=== PATIENT | male | born 1970 | race Caucasian/White ===

== ENCOUNTER 2019-11-16 06:58 | Outpatient (CLI) | payer BC, SELFPAY ==
[2019-11-16 07:14] LABS: Add Urine Microscopic? NO; Appearance Urine Clear (Clear); Bilirubin Urine Negative (Negative); Blood Urine Negative (Negative); Color Urine Yellow (Yellow); Glucose Urine UA Negative (Negative); Ketones Urine Negative (Negative); Leukocyte Esterase Ur Negative (Negative); Nitrate Urine Negative (Negative); Protein Urine Negative (Negative); Specific Grav Ur >= 1.030 (1.010-1.020); Urobilinogen Urine 0.2 mg/dL (0.2-1.0); pH Urine 5.5 (5.0-8.0)
[2019-11-16 07:51] LABS: Hemoglobin A1C 5.9 % (<5.7)
[2019-11-16 08:36] LABS: Alanine Aminotransferase 37 U/L (16-63); Albumin Level 3.7 g/dL (3.4-5.0); Alkaline Phosphatase 61 U/L (46-116); Anion Gap 14.2 mmol/L (7-16); Aspartate Amino Transferase 28 U/L (15-37); Bilirubin,Total 0.5 mg/dL (0.00-1.00); Calcium 8.9 mg/dL (8.5-10.1); Carbon Dioxide 29 mmol/L (21-32); Chloride 102 mmol/L (98-108); Cholesterol 169 mg/dL (0-200); Creatine Kinase 78 U/L (39-308); Estimated Glomerular Filt Rate > 60; Glucose 110 mg/dL (70-99); HDL Direct 46 mg/dL (40-60); LDL Cholesterol Calculated 77 mg/dL (<130); Potassium 4.2 mmol/L (3.5-5.1); Prostate Specific Antigen 0.4 ng/mL (< OR = 4.0); Sodium 141 mmol/L (136-145); Total Protein 7.2 g/dL (6.4-8.2); Triglycerides 230 mg/dL (0-150); Uric Acid 7.6 mg/dL (3.5-7.2)
[2019-11-16 08:45] LABS: Blood Urea Nitrogen 18 mg/dL (7-18); Osmolality Calculated 294 mOsm/kg (285-295)
== END 2019-11-16 06:59 | disposition home or self-care (01) ==
PROVIDERS: PCP Internal Medicine; Visit Provider Internal Medicine
DX: E78.2 Mixed hyperlipidemia (principal); I10 Essential (primary) hypertension; E79.0 Hyperuricemia without signs of inflammatory arthritis and tophaceous disease; R73.01 Impaired fasting glucose; Z12.5 Encounter for screening for malignant neoplasm of prostate
CPT/HCPCS: 36415; 80053; 80061; 81003; 82550; 83036; 84153; 84550; G0103

== ENCOUNTER 2020-04-10 16:34 | Outpatient (CLI) | payer BC, SELFPAY ==
--- NOTE | ~2020-04-10 | XR_ITS ---
EXAMINATION: XR lumbar spine 2-3V DATE: 04/10/2020 17:27 INDICATION: Low back pain TECHNIQUE: Anteroposterior and lateral views of the lumbar spine, and cone-down lateral view of the l umbosacral junction were obtained. COMPARISON: None. FINDINGS: The vertebral body heights are normal. There are 3 mm of retrolisthesis of L2 on L3. There is moderate loss of intervertebral disc space height at L5-S1. Small degenerative osteophytes project from the anterior endplates of multiple vertebral bodies. Moderate facet osteoarthritis is present i n the lower lumbar spine. IMPRESSION: 1. Mild lumbar spondylosis without acute findings. Reviewed, dictated and finalized at location A.
--- NOTE | ~2020-04-10 | XR_ITS ---
EXAMINATION: XR sacroiliac joints min 3V INDICATION: Low back pain TECHNIQUE: Three views of the sacroiliac joints are obtained. COMPARISON: None available FINDINGS: Bone alignment is normal. There is no fracture. No abnormal sclerosis or erosion of the sac roiliac joints is identified. IMPRESSION: 1. No acute osseous abnormality. Reviewed, dictated and finalized at location A.
== END 2020-04-10 16:35 | disposition home or self-care (01) ==
LOC: CHSIMG 16:36
PROVIDERS: PCP Internal Medicine; Visit Provider Internal Medicine
DX: M54.5 Low back pain (principal)
CPT/HCPCS: 72100; 72202

== ENCOUNTER 2020-05-23 06:58 | Outpatient (CLI) | payer BC, SELFPAY ==
[2020-05-23 07:09] LABS: Add Urine Microscopic? NO; Appearance Urine Clear (Clear); Bilirubin Urine Negative (Negative); Blood Urine Negative (Negative); Color Urine Yellow (Yellow); Glucose Urine UA Negative (Negative); Ketones Urine Negative (Negative); Leukocyte Esterase Ur Negative (Negative); Nitrate Urine Negative (Negative); Protein Urine Negative (Negative); Specific Grav Ur >= 1.030 (1.010-1.020); Urobilinogen Urine 0.2 mg/dL (0.2-1.0)
[2020-05-23 07:54] LABS: Hemoglobin A1C 5.6 % (<5.7)
[2020-05-23 08:17] LABS: Alanine Aminotransferase 48 U/L (16-63); Albumin Level 3.8 g/dL (3.4-5.0); Alkaline Phosphatase 59 U/L (46-116); Anion Gap 14 mmol/L (8-16); Aspartate Amino Transferase 30 U/L (15-37); Bilirubin,Total 0.5 mg/dL (0.00-1.00); Blood Urea Nitrogen 16 mg/dL (7-18); Calcium 9.1 mg/dL (8.5-10.1); Carbon Dioxide 28 mmol/L (21-32); Chloride 100 mmol/L (98-108); Cholesterol 192 mg/dL (0-200); Creatine Kinase 79 U/L (39-308); Estimated Glomerular Filt Rate > 60; Glucose 117 mg/dL (70-99); HDL Direct 47 mg/dL (40-60); LDL Cholesterol Calculated 105 mg/dL (<130); Osmolality Calculated 296 mOsm/kg (285-295); Potassium 3.9 mmol/L (3.5-5.1); Sodium 142 mmol/L (136-145); Total Protein 7.1 g/dL (6.4-8.2); Triglycerides 200 mg/dL (0-150); Uric Acid 6.4 mg/dL (3.5-7.2)
== END 2020-05-23 06:59 | disposition home or self-care (01) ==
LOC: CHSLAB 07:00
PROVIDERS: PCP Internal Medicine; Visit Provider Internal Medicine
DX: R73.01 Impaired fasting glucose (principal); I10 Essential (primary) hypertension; E78.2 Mixed hyperlipidemia; E79.0 Hyperuricemia without signs of inflammatory arthritis and tophaceous disease
CPT/HCPCS: 36415; 80053; 80061; 81003; 82550; 83036; 84550

== ENCOUNTER 2020-07-03 09:49 | Outpatient (CLI) | payer BC, SELFPAY ==
[2020-07-03 10:38] LABS: SARS-CoV-2 Ag Negative (Negative)
== END 2020-07-03 09:50 | disposition home or self-care (01) ==
LOC: CHSLAB 09:52
PROVIDERS: PCP Internal Medicine; Visit Provider Internal Medicine
DX: R50.9 Fever, unspecified (principal); R11.0 Nausea; R51.9 Headache, unspecified; Z20.828 Contact with and (suspected) exposure to other viral communicable diseases
CPT/HCPCS: 87426

== ENCOUNTER → 2020-11-19 00:06 | Outpatient (CLI) | payer BC, SELFPAY ==
[2020-11-19 19:15] LABS: SARS-CoV-2 RNA PCR Negative
== END ==
PROVIDERS: PCP Internal Medicine; Visit Provider Surgery
DX: Z01.812 Encounter for preprocedural laboratory examination (principal); Z20.822 Contact with and (suspected) exposure to COVID-19
CPT/HCPCS: C9803; U0003; U0005

== ENCOUNTER 2020-11-22 00:30 | Day surgery (SDC) | payer BC, SELFPAY ==
[2020-11-09 09:45] VITALS: BMI 40.7
--- NOTE | 2020-11-21 11:29 | P.PNAN_ITS ---
Anes - Initial Pre Proc Eval Procedure: Operation Date: 11/22/20 08:00 Proposed Procedures p Screening Colonoscopy - Misha Tyler DO Date/Time: 11/21/20 11:29 Surgeon: Misha Tyler DO Pre Op Diagnosis: Screening Patient Data Age: 50 Gender: M Height: 1.83 m Weight: 136.3 kg Allergies Allergy/AdvReac Type Severity Reaction Status Date / Time No Known Allergies Allergy Verified 11/22/20 06:40 Home Medications Medication Instructions Recorded Confirmed Type amlodipine 10 mg PO DAILY 11/09/20 11/09/20 History carvedilol 12.5 mg PO BID 11/09/20 11/09/20 History diclofenac sodium 75 mg PO DAILY 11/09/20 11/09/20 History lisinopril-hydrochlorothiazide 1 tablet PO BID 11/09/20 11/09/20 History pravastatin 40 mg PO DAILY 11/09/20 11/09/20 History Patient hx anesthesia problems: none Family hx anesthesia problems: none [facility] Past Medical History Medical History (Updated 11/21/20 @ 11:30 by Armando Camarena DO) Hypertension Social History Social History Substance use type: does not use Living arrangements: with family Gender identity (if verbalized by the patient): Male Spiritual care concerns: No Anes - Eval Final PreProcedure Day of Procedure 11/21/20 11:29 Patient weight: morbidly obese Heart: regular rate and rhythm Lungs: clear to auscultation and normal air movement Airway: Mallampati scale class III Neurological: alert and oriented Last oral intake: >/= 8 hours ASA classification: III Emergent: no Anesthetic plan: proceed Anesthesia type and monitoring: general GIVS and standard monitoring Informed Consent: The patient's anesthetic plan and its attendant risks and benefits were discussed with the patient/family/POA. Questions were solicited and answers provided to the satisfaction of the patient/family/POA.
[2020-11-22 06:42] VITALS: BP 134/81; PULSE 73; RESP 20; TEMP 36.4; O2SAT 98
[2020-11-22] MEDS: LACTATED RINGERS 1,000 ML 150 ML IV CONT (06:53)
--- NOTE | 2020-11-22 07:34 | PM.IMHP ---
H&P: HPI History of Present Illness Date/Time: 11/22/20 07:34 Chief Complaint: family history of rectal cancer Narrative: this is a 50-year-old man who presents for colonoscopy. His father was diagnosed with rectal cancer at around the age 60. He has never had a colonoscopy before. He denies any hematochezia or melena. He denies any change in bowel habits. Review of Systems Review of Systems: All systems reviewed & are unremarkable except as noted in HPI and below Constitutional: Constitutional: Denies chills, Denies fever(s), Denies headache(s) and Denies weight loss Eyes: Eyes: Denies change in vision ENT: Denies dizziness, Denies headache(s), Denies neck mass and Denies throat swelling Cardiovascular: Cardiovascular: Denies chest pain, Denies lightheadedness and Denies dyspnea Respiratory: Respiratory: Denies cough, Denies dyspnea and Denies wheezing Gastrointestinal: Gastrointestinal: Denies abdominal pain, Denies change in bowel habits, Denies nausea and Denies vomiting Genitourinary: Genitourinary: Denies hematuria and Denies dysuria Musculoskeletal: Musculoskeletal: Reports as per HPI Integumentary/Breasts: Skin/Breast: Reports as per HPI Neurologic: Denies dizziness and Denies headache(s) Allergic/Immunologic: Allergic/Immunologic: Denies throat swelling and Denies wheezing [facility] Past Medical History Medical History (Updated 11/22/20 @ 07:35 by Misha Tyler DO) Hypertension Social History Social History Substance use type: does not use Living arrangements: with family Gender identity (if verbalized by the patient): Male Spiritual care concerns: No Meds Home Medications and Allergies Home Medications Medication Instructions Recorded Confirmed Type amlodipine 10 mg PO DAILY 11/09/20 11/09/20 History carvedilol 12.5 mg PO BID 11/09/20 11/09/20 History diclofenac sodium 75 mg PO DAILY 11/09/20 11/09/20 History lisinopril-hydrochlorothiazide 1 tablet PO BID 11/09/20 11/09/20 History pravastatin 40 mg PO DAILY 11/09/20 11/09/20 History Allergies Allergy/AdvReac Type Severity Reaction Status Date / Time No Known Allergies Allergy Verified 11/22/20 06:40 Vital Signs Vital Signs - 24 hr 11/22/20 06:42 Temperature 36.4 C L Pulse Rate 73 Respiratory Rate 20 Blood Pressure 134/81 Pulse Oximetry 98 Exam Const: General: no acute distress and alert Orientation/consciousness: patient oriented x3 HENMT: Head: normocephalic and atraumatic Ears: hearing grossly normal bilaterally General nose exam: Normal nares present Mouth: Yes Normal oral and palatal mucosa present Eyes: Periorbital: periorbital findings normal Sclera: sclerae normal EOM: EOMs intact bilaterally Neck: Neck: normal visual inspection, no lymphadenopathy and trachea midline Chest: Chest palpation & inspection: normal inspection of the chest Resp: Effort & Inspection: normal respiratory effort Auscultation: clear to auscultation bilaterally Cardio: Jugular venous distension: no JVD Rate: regular rate Rhythm: regular rhythm Heart sounds: S1 normal heart sound present and S2 normal heart sound present Peripheral pulses: Peripheral pulses 2+ throughout GI: Inspection: normal to inspection GI Palp: Yes Soft to palpation, No Tenderness to palpation present (GI), No Guarding due to palpation present (GI) and No Rebound tenderness present Percussion: Yes normal to percussion Auscultation: normal bowel sounds : General: Yes no CVA tenderness Back/Spine/Pelvis: Back: no CVA tenderness Neuro: General: patient oriented x3, no focal motor deficits and CN's II-XI intact bilaterally Cognition (Neuro): normal cognition Speech: normal speech Motor exam (neuro): 5/5 motor strength present throughout Extrem: General: capillary refill normal and no clubbing, cyanosis or edema Assessment and Plan Assessment and plan (1) Family history of rectal cancer: Code(s): Z80.0 - Family hist
[2020-11-22 08:29] VITALS: BP 119/68; PULSE 69; RESP 23; O2SAT 98
[2020-11-22 08:39] VITALS: BP 94/50; PULSE 73; RESP 22; O2SAT 99
[2020-11-22 08:49] VITALS: BP 110/53; PULSE 69; RESP 15; O2SAT 98
== END 2020-11-22 08:52 | disposition home or self-care (01) ==
PROVIDERS: PCP Internal Medicine; Visit Provider Surgery
PROC: 0DJD8ZZ Inspection of Lower Intestinal Tract, Via Natural or Artificial Opening Endoscopic (ICD-10-PCS; CPT 45378; principal; 2020-11-22 08:00)
DX: Z12.11 Encounter for screening for malignant neoplasm of colon (principal); Z80.0 Family history of malignant neoplasm of digestive organs; I10 Essential (primary) hypertension
CPT/HCPCS: 45378; J2704; J7120

== ENCOUNTER 2020-12-25 15:44 | Outpatient (CLI) | payer BC, SELFPAY ==
[2020-12-25 16:30] LABS: Uric Acid 6.3 mg/dL (3.5-7.2)
== END 2020-12-25 15:45 | disposition home or self-care (01) ==
LOC: CHSLAB 15:46
PROVIDERS: PCP Internal Medicine; Visit Provider Internal Medicine
DX: E79.0 Hyperuricemia without signs of inflammatory arthritis and tophaceous disease (principal)
CPT/HCPCS: 36415; 84550

== ENCOUNTER 2021-01-25 15:49 | Outpatient (CLI) | payer BC, SELFPAY ==
[2021-01-25 16:33] LABS: Anion Gap 12 mmol/L (8-16); Blood Urea Nitrogen 21 mg/dL (7-18); Calcium 9.4 mg/dL (8.5-10.1); Carbon Dioxide 30 mmol/L (21-32); Chloride 101 mmol/L (98-108); Estimated Glomerular Filt Rate > 60; Glucose 101 mg/dL (70-99); Osmolality Calculated 299 mOsm/kg (285-295); Potassium 4.2 mmol/L (3.5-5.1); Sodium 143 mmol/L (136-145); Uric Acid 6.4 mg/dL (3.5-7.2)
== END 2021-01-25 15:50 | disposition home or self-care (01) ==
LOC: CHSLAB 15:51
PROVIDERS: PCP Internal Medicine; Visit Provider Internal Medicine
DX: E79.0 Hyperuricemia without signs of inflammatory arthritis and tophaceous disease (principal)
CPT/HCPCS: 36415; 80048; 84550

== ENCOUNTER 2021-05-29 07:01 | Outpatient (CLI) | payer BC, SELFPAY ==
[2021-05-29 07:17] LABS: Add Urine Microscopic? NO; Appearance Urine Clear (Clear); Bilirubin Urine Negative (Negative); Blood Urine Negative (Negative); Color Urine Yellow (Yellow); Glucose Urine UA Negative (Negative); Ketones Urine Negative (Negative); Leukocyte Esterase Ur Negative (Negative); Nitrate Urine Negative (Negative); Protein Urine Negative (Negative); Specific Grav Ur >= 1.030 (1.010-1.020); Urobilinogen Urine 0.2 mg/dL (0.2-1.0); pH Urine 5.5 (5.0-8.0)
[2021-05-29 07:51] LABS: Hemoglobin A1C 5.4 % (<5.7)
[2021-05-29 08:37] LABS: Alanine Aminotransferase 51 U/L (16-63); Albumin Level 3.8 g/dL (3.4-5.0); Alkaline Phosphatase 63 U/L (46-116); Anion Gap 9 mmol/L (8-16); Aspartate Amino Transferase 32 U/L (15-37); Bilirubin,Total 0.6 mg/dL (0.00-1.00); Blood Urea Nitrogen 18 mg/dL (7-18); Calcium 9.5 mg/dL (8.5-10.1); Carbon Dioxide 29 mmol/L (21-32); Chloride 101 mmol/L (98-108); Cholesterol 183 mg/dL (0-200); Creatine Kinase 85 U/L (39-308); Estimated Glomerular Filt Rate > 60; Glucose 117 mg/dL (70-99); HDL Direct 44 mg/dL (40-60); LDL Cholesterol Calculated 87 mg/dL (<130); Osmolality Calculated 290 mOsm/kg (285-295); Sodium 139 mmol/L (136-145); Total Protein 7.1 g/dL (6.4-8.2); Triglycerides 260 mg/dL (0-150); Uric Acid 5.3 mg/dL (3.5-7.2)
== END 2021-05-29 07:02 | disposition home or self-care (01) ==
LOC: CHSLAB 07:04
PROVIDERS: PCP Internal Medicine; Visit Provider Internal Medicine
DX: E78.2 Mixed hyperlipidemia (principal); I10 Essential (primary) hypertension; E79.0 Hyperuricemia without signs of inflammatory arthritis and tophaceous disease; R73.01 Impaired fasting glucose
CPT/HCPCS: 36415; 80053; 80061; 81003; 82550; 83036; 84550

== ENCOUNTER 2021-12-11 08:01 | Outpatient (CLI) | payer BC, SELFPAY ==
[2021-12-11 08:12] LABS: Add Urine Microscopic? NO; Appearance Urine Clear (Clear); Bilirubin Urine Negative (Negative); Blood Urine Negative (Negative); Color Urine Yellow (Yellow); Glucose Urine UA Negative (Negative); Ketones Urine Negative (Negative); Leukocyte Esterase Ur Negative (Negative); Nitrate Urine Negative (Negative); Protein Urine Negative (Negative); Specific Grav Ur >= 1.030 (1.010-1.020); Urobilinogen Urine 0.2 mg/dL (0.2-1.0); pH Urine 5.5 (5.0-8.0)
[2021-12-11 08:50] LABS: Hemoglobin A1C 5.5 % (<5.7)
[2021-12-11 09:19] LABS: Alanine Aminotransferase 38 U/L (16-63); Albumin Level 3.7 g/dL (3.4-5.0); Alkaline Phosphatase 56 U/L (46-116); Anion Gap 9 mmol/L (8-16); Aspartate Amino Transferase 31 U/L (15-37); Bilirubin,Total 0.7 mg/dL (0.00-1.00); Blood Urea Nitrogen 20 mg/dL (7-18); Calcium 9.1 mg/dL (8.5-10.1); Carbon Dioxide 28 mmol/L (21-32); Chloride 100 mmol/L (98-108); Cholesterol 158 mg/dL (0-200); Creatine Kinase 176 U/L (39-308); Estimated Glomerular Filt Rate > 60; Glucose 120 mg/dL (70-99); HDL Direct 45 mg/dL (40-60); LDL Cholesterol Calculated 60 mg/dL (<130); Osmolality Calculated 287 mOsm/kg (285-295); Potassium 4.1 mmol/L (3.5-5.1); Prostate Specific Antigen 0.6 ng/mL (< OR = 4.0); Sodium 137 mmol/L (136-145); Total Protein 6.9 g/dL (6.4-8.2); Triglycerides 265 mg/dL (0-150); Uric Acid 6.2 mg/dL (3.5-7.2)
== END 2021-12-11 08:02 | disposition home or self-care (01) ==
LOC: CHSLAB 08:03
PROVIDERS: PCP Internal Medicine; Visit Provider Internal Medicine
DX: I10 Essential (primary) hypertension (principal); E79.0 Hyperuricemia without signs of inflammatory arthritis and tophaceous disease; R73.01 Impaired fasting glucose; Z12.5 Encounter for screening for malignant neoplasm of prostate
CPT/HCPCS: 36415; 80053; 80061; 81003; 82550; 83036; 84153; 84550; G0103

== ENCOUNTER 2022-07-02 06:55 | Outpatient (CLI) | payer BC, SELFPAY ==
[2022-07-02 07:08] LABS: Add Urine Microscopic? NO; Appearance Urine Clear (Clear); Bilirubin Urine Negative (Negative); Blood Urine Negative (Negative); Color Urine Yellow (Yellow); Glucose Urine UA Negative (Negative); Ketones Urine Negative (Negative); Leukocyte Esterase Ur Negative (Negative); Nitrate Urine Negative (Negative); Protein Urine Negative (Negative); Specific Grav Ur >= 1.030 (1.010-1.020); Urobilinogen Urine 0.2 mg/dL (0.2-1.0)
[2022-07-02 07:31] LABS: Hemoglobin A1C 5.4 % (<5.7)
[2022-07-02 07:45] LABS: Alanine Aminotransferase 35 U/L (16-63); Albumin Level 3.7 g/dL (3.4-5.0); Alkaline Phosphatase 58 U/L (46-116); Anion Gap 6 mmol/L (8-16); Aspartate Amino Transferase 27 U/L (15-37); Bilirubin,Total 0.6 mg/dL (0.00-1.00); Blood Urea Nitrogen 19 mg/dL (7-18); Calcium 8.9 mg/dL (8.5-10.1); Carbon Dioxide 32 mmol/L (21-32); Chloride 101 mmol/L (98-108); Cholesterol 197 mg/dL (0-200); Creatine Kinase 86 U/L (39-308); Estimated Glomerular Filt Rate > 60; Glucose 117 mg/dL (70-99); HDL Direct 53 mg/dL (40-60); LDL Cholesterol Calculated 92 mg/dL (<130); Osmolality Calculated 291 mOsm/kg (285-295); Sodium 139 mmol/L (136-145); Total Protein 7.1 g/dL (6.4-8.2); Triglycerides 258 mg/dL (0-150); Uric Acid 5.2 mg/dL (3.5-7.2)
== END 2022-07-02 06:56 | disposition home or self-care (01) ==
LOC: CHSLAB 06:57
PROVIDERS: PCP Internal Medicine; Visit Provider Internal Medicine
DX: E79.0 Hyperuricemia without signs of inflammatory arthritis and tophaceous disease (principal); I10 Essential (primary) hypertension; E78.2 Mixed hyperlipidemia; R73.01 Impaired fasting glucose
CPT/HCPCS: 36415; 80053; 80061; 81003; 82550; 83036; 84550

== ENCOUNTER 2023-02-10 07:20 | Outpatient (CLI) | payer BC, SELFPAY ==
[2023-02-10 07:37] LABS: Basophils Absolute Auto 0.05 K/mm3 (0.00-0.10); Basophils Percent Auto 0.8 % (0.0-1.0); Eosinophils Absolute Auto 0.16 K/mm3 (0.02-0.50); Eosinophils Percent Auto 2.6 % (1.0-6.0); Hematocrit 44.3 % (40.0-54.0); Immature Granulocyte Absolute 0.02 K/mm3 (0.00-0.00); Immature Granulocyte Percent A 0.3 % (0.0-0.0); Lymphocytes Absolute Auto 1.77 K/mm3 (1.10-4.50); Lymphocytes Percent Auto 28.6 % (18.0-42.0); Mean Corpuscular HGB Conc 33.9 g/dL (32.0-36.0); Mean Corpuscular Hemoglobin 33.3 pg (27.0-31.0); Mean Corpuscular Volume 98.2 fL (78.0-102.0); Mean Platelet Volume 8.9 fl (8.7-11.0); Monocytes Absolute Auto 0.71 K/mm3 (0.10-0.90); Monocytes Percent Auto 11.5 % (2.0-11.0); Neutrophils Absolute Auto 3.5 K/mm3 (1.7-7.2); Neutrophils Percent Auto 56.2 % (50.0-70.0); Platelet Count Result 206 K/mm3 (150-420); Red Blood Count 4.51 M/mm3 (4.70-6.10); Red Cell Distribution Width 12.7 % (11.6-14.4); White Blood Count 6.2 K/mm3 (4.8-10.8)
[2023-02-10 07:38] LABS: Appearance Urine Clear (Clear); Bilirubin Urine Negative (Negative); Blood Urine Negative (Negative); Color Urine Light Yellow (Yellow); Glucose Urine UA Negative (Negative); Ketones Urine Negative (Negative); Leukocyte Esterase Ur Negative (Negative); Nitrate Urine Negative (Negative); Protein Urine Negative (Negative); Urobilinogen Urine 0.2 mg/dL (0.2-1.0); pH Urine 5.5 (5.0-8.0)
[2023-02-10 07:40] LABS: Add Urine Microscopic? NO
[2023-02-10 07:54] LABS: Hemoglobin A1C 5.4 % (<5.7)
[2023-02-10 08:35] LABS: Alanine Aminotransferase 51 U/L (16-63); Albumin Level 3.7 g/dL (3.4-5.0); Alkaline Phosphatase 61 U/L (46-116); Anion Gap 6 mmol/L (8-16); Aspartate Amino Transferase 31 U/L (15-37); Bilirubin,Total 0.6 mg/dL (0.00-1.00); Blood Urea Nitrogen 13 mg/dL (7-18); Calcium 8.9 mg/dL (8.5-10.1); Carbon Dioxide 32 mmol/L (21-32); Chloride 103 mmol/L (98-108); Cholesterol 180 mg/dL (0-200); Creatine Kinase 100 U/L (39-308); Estimated Glomerular Filt Rate > 60; Glucose 103 mg/dL (70-99); HDL Direct 52 mg/dL (40-60); LDL Cholesterol Calculated 73 mg/dL (<130); Osmolality Calculated 292 mOsm/kg (285-295); Potassium 4.2 mmol/L (3.5-5.1); Sodium 141 mmol/L (136-145); Triglycerides 274 mg/dL (0-150)
== END 2023-02-10 07:21 | disposition home or self-care (01) ==
LOC: CHSLAB 07:23
PROVIDERS: PCP Internal Medicine; Visit Provider Internal Medicine
DX: I10 Essential (primary) hypertension (principal); E78.2 Mixed hyperlipidemia; R73.01 Impaired fasting glucose; E79.0 Hyperuricemia without signs of inflammatory arthritis and tophaceous disease
CPT/HCPCS: 36415; 80053; 80061; 81003; 82550; 83036; 85025

== ENCOUNTER 2023-08-13 07:12 | Outpatient (CLI) | payer BC, SELFPAY ==
--- NOTE | ~2023-08-13 | MR_ITS ---
MRI of the brain Clinical History: Tremor Technique: Axial and sagittal T1-weighted images were acquired. These were followed by axial T2-weigh kunal, diffusion weighted, gradient, and FLAIR images. Following intravenous administration of 20 cc Mu ltiHance gadolinium, T1-weighted fat-sat imaging was performed in the axial and coronal planes. Findings: No significant signal abnormality seen in the brain parenchyma. No acute infarct, intracran ial hemorrhage, or mass lesion. Ventricles and subarachnoid spaces are unremarkable. Orbits are unremarkable. Paranasal sinuses and m astoid air cells are clear. Major intracranial flow voids are intact. Sagittal midline structures are intact. No abnormal postcontrast enhancement identified. IMPRESSION: Unremarkable exam. Reviewed, dictated and finalized at location M. ER HAND IMPRESSION: Unremarkable exam.
[2023-08-13 07:41] LABS: Appearance Urine Clear (Clear); Bilirubin Urine Negative (Negative); Blood Urine Negative (Negative); Color Urine Light Yellow (Yellow); Glucose Urine UA Negative (Negative); Ketones Urine Negative (Negative); Leukocyte Esterase Ur Negative (Negative); Nitrate Urine Negative (Negative); Protein Urine Negative (Negative); Specific Grav Ur 1.025 (1.010-1.020); Urobilinogen Urine 0.2 mg/dL (0.2-1.0)
[2023-08-13 07:47] LABS: Add Urine Microscopic? NO
[2023-08-13 07:56] LABS: Hemoglobin A1C 5.7 % (<5.7)
[2023-08-13 08:14] LABS: Alanine Aminotransferase 49 U/L (16-63); Albumin Level 3.6 g/dL (3.4-5.0); Alkaline Phosphatase 52 U/L (46-116); Anion Gap 11 mmol/L (8-16); Aspartate Amino Transferase 37 U/L (15-37); Bilirubin,Total 0.7 mg/dL (0.00-1.00); Blood Urea Nitrogen 17 mg/dL (7-18); Calcium 9.1 mg/dL (8.5-10.1); Carbon Dioxide 30 mmol/L (21-32); Chloride 100 mmol/L (98-108); Cholesterol 193 mg/dL (0-200); Creatine Kinase 93 U/L (39-308); Estimated Glomerular Filt Rate > 60; Glucose 111 mg/dL (70-99); HDL Direct 56 mg/dL (40-60); LDL Cholesterol Calculated 102 mg/dL (<130); Osmolality Calculated 294 mOsm/kg (285-295); Potassium 3.9 mmol/L (3.5-5.1); Sodium 141 mmol/L (136-145); Total Protein 7.1 g/dL (6.4-8.2); Triglycerides 176 mg/dL (0-150); Uric Acid 4.9 mg/dL (3.5-7.2)
== END 2023-08-13 07:13 | disposition home or self-care (01) ==
LOC: CHSIMG 07:14
PROVIDERS: PCP Internal Medicine; Visit Provider Internal Medicine
DX: I10 Essential (primary) hypertension (principal); R73.01 Impaired fasting glucose; E78.2 Mixed hyperlipidemia; E79.0 Hyperuricemia without signs of inflammatory arthritis and tophaceous disease; R25.1 Tremor, unspecified
CPT/HCPCS: 36415; 70553; 80053; 80061; 81003; 82550; 83036; 84550; A9577

== ENCOUNTER 2024-02-25 07:02 | Outpatient (CLI) | payer BC, SELFPAY ==
[2024-02-25 07:20] LABS: Basophils Absolute Auto 0.05 K/mm3 (0.00-0.10); Basophils Percent Auto 0.8 % (0.0-1.0); Eosinophils Absolute Auto 0.11 K/mm3 (0.02-0.50); Eosinophils Percent Auto 1.8 % (1.0-6.0); Hematocrit 41.3 % (40.0-54.0); Hemoglobin 14.2 g/dL (14.0-18.0); Immature Granulocyte Absolute 0.03 K/mm3 (0.00-0.00); Immature Granulocyte Percent A 0.5 % (0.0-0.0); Lymphocytes Absolute Auto 1.92 K/mm3 (1.10-4.50); Lymphocytes Percent Auto 31.5 % (18.0-42.0); Mean Corpuscular HGB Conc 34.4 g/dL (32-36); Mean Corpuscular Hemoglobin 33.5 pg (27.0-31.0); Mean Corpuscular Volume 97.4 fL (78.0-102.0); Mean Platelet Volume 9.1 fl (8.7-11.0); Monocytes Absolute Auto 0.54 K/mm3 (0.10-0.90); Monocytes Percent Auto 8.9 % (2.0-11.0); Neutrophils Absolute Auto 3.44 K/mm3 (1.70-7.20); Neutrophils Percent Auto 56.5 % (50.0-70.0); Platelet Count Result 218 K/mm3 (150-420); Red Blood Count 4.24 M/mm3 (4.70-6.10); Red Cell Distribution Width 13.3 % (11.6-14.4); White Blood Count 6.1 K/mm3 (4.8-10.8)
[2024-02-25 07:21] LABS: Add Urine Microscopic? NO; Appearance Urine Clear (Clear); Bilirubin Urine Negative (Negative); Blood Urine Negative (Negative); Color Urine Light Yellow (Yellow); Glucose Urine UA Negative (Negative); Ketones Urine Negative (Negative); Leukocyte Esterase Ur Negative (Negative); Nitrate Urine Negative (Negative); Protein Urine Negative (Negative); Specific Grav Ur 1.025 (1.010-1.020); Urobilinogen Urine 0.2 mg/dL (0.2-1.0)
[2024-02-25 07:26] LABS: Creatinine Urine 115.16 mg/dL (40-278); MALB Creatinine Ratio 15.4 mg/g (0-30); Microalbumin Urine Random 17.8 mg/L
[2024-02-25 07:28] LABS: Hemoglobin A1C 5.6 % (<5.7)
[2024-02-25 08:13] LABS: Albumin Level 3.7 g/dL (3.4-5.0); Alkaline Phosphatase 73 U/L (46-116); Anion Gap 10 mmol/L (4-12); Aspartate Amino Transferase 43 U/L (15-37); Bilirubin,Total 0.6 mg/dL (0.00-1.00); Blood Urea Nitrogen 19 mg/dL (7-18); Calcium 8.9 mg/dL (8.5-10.1); Carbon Dioxide 29 mmol/L (21-32); Chloride 102 mmol/L (98-108); Cholesterol 176 mg/dL (0-200); Creatine Kinase 213 U/L (39-308); Estimated Glomerular Filt Rate > 60; Glucose 122 mg/dL (70-99); HDL Direct 48 mg/dL (40-60); LDL Cholesterol Calculated 88 mg/dL (<130); Osmolality Calculated 295 mOsm/kg (285-295); Prostate Specific Antigen 0.7 ng/mL (< OR = 4.0); Sodium 141 mmol/L (136-145); Total Protein 7.1 g/dL (6.4-8.2); Triglycerides 202 mg/dL (0-150); Uric Acid 5.2 mg/dL (3.5-7.2)
[2024-02-25 08:24] LABS: Alanine Aminotransferase 17 U/L (16-63)
== END 2024-02-25 07:03 | disposition home or self-care (01) ==
LOC: CHSLAB 07:05
PROVIDERS: PCP Internal Medicine; Visit Provider Internal Medicine
DX: Z00.00 Encounter for general adult medical examination without abnormal findings (principal); I10 Essential (primary) hypertension; E78.2 Mixed hyperlipidemia; R73.01 Impaired fasting glucose; E79.0 Hyperuricemia without signs of inflammatory arthritis and tophaceous disease
CPT/HCPCS: 36415; 80053; 80061; 81003; 82043; 82550; 83036; 84153; 84550; 85025; G0103

== ENCOUNTER 2024-03-16 08:39 | Outpatient (CLI) | payer BC, SELFPAY ==
[2024-03-21 11:18] LABS: Testosterone Free 43.6 pg/mL (35.0-155.0); Testosterone Total 211 ng/dL (250-1100)
== END 2024-03-16 08:40 | disposition home or self-care (01) ==
LOC: CHSLAB 08:42
PROVIDERS: PCP Internal Medicine; Visit Provider Internal Medicine
DX: E29.1 Testicular hypofunction (principal)
CPT/HCPCS: 36415; 84402; 84403

== ENCOUNTER 2024-08-30 07:10 | Outpatient (CLI) | payer BC, SELFPAY ==
--- OUTSIDE RECORDS SUMMARY | 2024-08-30 07:21 | XMS_ITS | CONTINUITY OF CARE DOCUMENT ---
Author Name christoph sunikaterine Address Unknown Organization [facility] Address [address] [place] [address] Phone [phone] Care Team Providers Care Railway Signal Technician Name Role Phone Kendall Ugalde MD Unavailable DILAN REYNOSO MD Unavailable [phone] PROBLEMS Condition Status Date Provider Notes HTN essential active Kendall Ugalde MD Hypercholesterolemia active Kendall Ugalde MD Obesity active Kendall Ugalde MD Abnormal routine stress--false positive active Kendall Ugalde MD ENCOUNTERS Date Type Provider Location Encounter Diag nosis - In-person encounter Office Visit Kendall Ugalde MD [place] [facility] HTN essentialHypercholesterolemiaObesityAbnormal routine stress--false positive VITAL SIGNS Date Observation Value Provider blood pressure, diastolic 82 mm[Hg] Us hallie Ugalde MD blood pressure, systolic 128 mm[Hg] Sara Ugalde MD pulse rate 82 /min Kendall Ugalde MD oxygen saturation, oximetry 97 % Kendall Ugalde MD respiratory rate E&M 16 /min Kendall schafer MD weight E&M 300 [lb_av] Kendall Ugalde MD height E&M 72 [in_i] Kendall Ugalde MD ALLERGIES No Known Drug Allergies HISTORY OF MEDICATION USE Medication Status Instructions Dates Provider Indications Com ments TRIAMCINOLONE ACETONIDE AEROSOL active TWICE DAILY Kendall Ugalde MD PRAVASTATIN SODIUM 40 MG ORAL TABLET active ONE TAB. DAILY Kendall Ugalde MD AMLODIPINE BESYLATE 10 MG ORAL TABLET active ONE TAB. 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 R egular Exercise - no D rug Use - no Smoking History: Maricruz josé has never smoked. Kendall Ugalde MD social history reviewed E&M reviewed - no changes required Kendall Ugalde MD smoking status Never smoker Kendall Ugalde MD FAMILY HISTORY Family Member Condition Father Family History of Co ngestive Heart Failure: Father Family History of Co ronary Artery Disease: Daughter Negative FH of Hyper tension Daughter Negative FH of Diabe gonzalo Mellitus INSURANCE PROVIDERS Payer name Policy type / Coverage type [place] [employer] libertarian ID [facility] [id number] TREATMENT PLAN Date Name Performer Follow-up faxed to sabrina coppola/pcp:BP 128/82 His updated medication list for this problem includes: Amlodipine Besylate 10 Mg Tabs (Amlodipine besylate) ..... One tab. daily Lisinopril-hydrochlorothiazide 20-12.5 Mg Tabs (Lisinopril-hydrochlorothiazide) ..... One tab daily Kendall Ugalde MD Date Name STR - Nuclear Complete Echo
[2024-08-30 07:34] LABS: Hematocrit 43.1 % (40.0-54.0); Hemoglobin 14.6 g/dL (14.0-18.0); Mean Corpuscular HGB Conc 33.9 g/dL (32-36); Mean Corpuscular Hemoglobin 32.9 pg (27.0-31.0); Mean Corpuscular Volume 97.1 fL (78.0-102.0); Mean Platelet Volume 9.5 fl (8.7-11.0); Platelet Count Result 236 K/mm3 (150-420); Red Blood Count 4.44 M/mm3 (4.70-6.10); White Blood Count 6.8 K/mm3 (4.8-10.8)
[2024-08-30 07:35] LABS: Add Urine Microscopic? NO; Appearance Urine Clear (Clear); Bilirubin Urine Negative (Negative); Blood Urine Negative (Negative); Color Urine Light Yellow (Yellow); Glucose Urine UA Negative (Negative); Ketones Urine Negative (Negative); Leukocyte Esterase Ur Negative (Negative); Nitrate Urine Negative (Negative); Protein Urine Negative (Negative); Specific Grav Ur 1.025 (1.010-1.020); Urobilinogen Urine 0.2 mg/dL (0.2-1.0); pH Urine 5.5 (5.0-8.0)
[2024-08-30 07:43] LABS: Creatinine Urine 113.38 mg/dL (40-278); MALB Creatinine Ratio 11.6 mg/g (0-30); Microalbumin Urine Random 13.2 mg/L
[2024-08-30 08:03] LABS: Hemoglobin A1C 5.5 % (<5.7)
[2024-08-30 08:30] LABS: Alanine Aminotransferase 12 U/L (16-63); Albumin Level 3.9 g/dL (3.4-5.0); Alkaline Phosphatase 79 U/L (46-116); Anion Gap 10 mmol/L (4-12); Aspartate Amino Transferase 21 U/L (15-37); Bilirubin,Total 0.6 mg/dL (0.00-1.00); Blood Urea Nitrogen 22 mg/dL (7-18); Calcium 9.5 mg/dL (8.5-10.1); Carbon Dioxide 31 mmol/L (21-32); Chloride 100 mmol/L (98-108); Cholesterol 189 mg/dL (0-200); Creatine Kinase 85 U/L (39-308); Estimated Glomerular Filt Rate > 60; Glucose 102 mg/dL (70-99); HDL Direct 53 mg/dL (40-60); LDL Cholesterol Calculated 81 mg/dL (<130); Osmolality Calculated 295 mOsm/kg (285-295); Potassium 4.2 mmol/L (3.5-5.1); Sodium 141 mmol/L (136-145); Thyroid Stimulating Hormone 3.01 uIU/mL (0.36-3.74); Total Protein 7.2 g/dL (6.4-8.2); Triglycerides 274 mg/dL (0-150); Uric Acid 4.5 mg/dL (3.5-7.2)
== END 2024-08-30 07:11 | disposition home or self-care (01) ==
LOC: CHSLAB 07:12
PROVIDERS: PCP Internal Medicine; Visit Provider Internal Medicine
DX: R73.01 Impaired fasting glucose (principal); I10 Essential (primary) hypertension; E78.2 Mixed hyperlipidemia; R25.1 Tremor, unspecified; L20.89 Other atopic dermatitis; E79.0 Hyperuricemia without signs of inflammatory arthritis and tophaceous disease
CPT/HCPCS: 36415; 80053; 80061; 81003; 82043; 82550; 83036; 84439; 84443; 84550; 85027

== ENCOUNTER 2025-03-22 07:01 | Outpatient (CLI) | payer BC, SELFPAY ==
[2025-03-22 07:14] LABS: Hematocrit 43.2 % (40.0-54.0); Hemoglobin 14.5 g/dL (14.0-18.0); Mean Corpuscular HGB Conc 33.6 g/dL (32-36); Mean Corpuscular Hemoglobin 33.0 pg (27.0-31.0); Mean Corpuscular Volume 98.2 fL (78.0-102.0); Platelet Count Result 200 K/mm3 (150-420); Red Blood Count 4.40 M/mm3 (4.70-6.10); White Blood Count 6.8 K/mm3 (4.8-10.8)
[2025-03-22 07:15] LABS: Add Urine Microscopic? NO; Appearance Urine Clear (Clear); Glucose Urine UA Negative (Negative); Leukocyte Esterase Ur Negative (Negative); Nitrate Urine Negative (Negative); Specific Grav Ur 1.020 (1.010-1.020)
[2025-03-22 07:31] LABS: Hemoglobin A1C 5.5 % (<5.7)
[2025-03-22 07:32] LABS: MALB Creatinine Ratio 14.4 mg/g (0-30)
[2025-03-22 08:03] LABS: Alanine Aminotransferase 7 U/L (6-50); Albumin Level 4.6 g/dL (3.5-5.1); Alkaline Phosphatase 79 U/L (38-126); Anion Gap 9 mmol/L (4-12); Aspartate Amino Transferase 27 U/L (17-59); Bilirubin,Total 1.0 mg/dL (0.2-1.3); Blood Urea Nitrogen 24 mg/dL (9-20); Calcium 9.9 mg/dL (8.4-10.2); Carbon Dioxide 31 mmol/L (22-30); Chloride 102 mmol/L (98-107); Cholesterol 182 mg/dL (0-200); Creatine Kinase 69 U/L (55-170); Estimated Glomerular Filt Rate > 60; Glucose 115 mg/dL (65-110); HDL Direct 59 mg/dL; Osmolality Calculated 299 mOsm/kg (285-295); Potassium 4.3 mmol/L (3.4-5.0); Sodium 142 mmol/L (137-145); Total Protein 7.4 g/dL (6.3-8.2); Triglycerides 241 mg/dL (<150); Uric Acid 4.6 mg/dL (3.5-8.5)
[2025-03-22 08:20] LABS: Free T4 Free Thyroxine 0.82 ng/dL (0.78-2.19)
[2025-03-22 08:34] LABS: Prostate Specific Antigen 0.6 ng/mL (< OR = 4.0); Thyroid Stimulating Hormone 2.350 uIU/mL (0.465-4.680)
== END 2025-03-22 07:02 | disposition home or self-care (01) ==
PROVIDERS: PCP Internal Medicine; Visit Provider Internal Medicine
DX: Z00.00 Encounter for general adult medical examination without abnormal findings (principal); R73.01 Impaired fasting glucose; E78.2 Mixed hyperlipidemia; I10 Essential (primary) hypertension; E79.0 Hyperuricemia without signs of inflammatory arthritis and tophaceous disease; Z12.5 Encounter for screening for malignant neoplasm of prostate
CPT/HCPCS: 36415; 80053; 80061; 81003; 82043; 82550; 83036; 84153; 84439; 84443; 84550; 85027; G0103